=== PATIENT | female | born 1965 | race Caucasian/White ===

== ENCOUNTER → 2016-08-31 | Outpatient (CLI) | payer OTHER ==
[~2016-08-31] MED LIST: GADAVIST IV PRN
--- NOTE | 2016-08-31 14:24 | DIAGNOSTIC IMAGING REPORT ---
MRI OF THE CERVICAL SPINE WITH AND WITHOUT CONTRAST CLINICAL HISTORY: Right-sided weakness. Gait abnormality. Visual changes. COMPARISON: None. TECHNIQUE: Utilizing a 1.5 Corinne magnet and dedicated coil, multiplanar, multiecho imaging of the cervical spine was performed before and after intravenous administration of 6.3 of Gadavist. FINDINGS: There is reversal of the normal cervical lordosis. There is 3 mm of anterolisthesis of C2 on C3, 3 mm of anterolisthesis of C3 on C4, 5 mm of retrolisthesis of C4 on C5 and 4 mm anterolisthesis of C7 on T1. This exam is mildly compromised by motion artifact. There is suspected increased signal within the cervical cord at the C4-C5 level. No intracanalicular mass, fluid collection or pathologic enhancement is present. Paravertebral soft tissues are unremarkable. Severe multilevel degenerative changes are present. C2-C3: The central canal is patent. There is moderate left neural foraminal stenosis. C3-C4: There is mild narrowing of the central canal. There is severe narrowing of both neural foramen due to facet arthrosis and uncovertebral hypertrophy. C4-C5: There is severe narrowing of the central canal in part due to retrolisthesis of C4 on C5. There is mild disc bulge. There is osteophyte formation. There is severe narrowing of both neural foramen. C5-C6: A disc bulge is noted. There is severe narrowing of the central canal as well as both neural foramen. C6-C7: Disc bulge is present. There is moderate to severe narrowing of the central canal and both neural foramen. C7-T1: There is mild narrowing of the central canal. There is moderate narrowing of both neural foramen. IMPRESSION: 1. Severe multilevel degenerative disc disease and facet arthrosis of the cervical spine which is superimposed upon reversal of the normal cervical lordosis with multilevel anterolisthesis and retrolisthesis, as described above. The findings result in severe multilevel central canal stenosis, most pronounced at the C4-C5, C5-C6 and C6-C7 levels. 2. Severe multilevel neural foraminal stenosis. 3. Increased cervical cord signal at the C4-C5 level which could reflect cord edema or myelomalacia. Electronically signed by: Kiet Chawla M.D. 08/31/2016 2:21 PM Dictated Date/Time: 08/31/2016 2:14 PM
--- NOTE | 2016-08-31 16:38 | DIAGNOSTIC IMAGING REPORT ---
MRI OF THE BRAIN WITHOUT AND WITH IV CONTRAST CLINICAL HISTORY: Right-sided weakness. Visual changes. Gait abnormality. COMPARISON STUDY: No previous studies for comparison. TECHNIQUE: Utilizing a 1.5 Corinne magnet and dedicated coil, multiplanar, multiecho imaging of the brain was performed pre and postcontrast administration. IV administration of 6.3 mL of Gadavist contrast was uneventful. FINDINGS: This exam is mildly compromised by motion artifact although is diagnostic. No acute intracranial hemorrhage, midline shift or mass effect is present. Brain volume is normal for age. Ventricular system is normal. Basilar cisterns are patent. There are no extra-axial collections. Flow-voids for the major intracranial vessels are present. There is no intracranial mass or pathologic enhancement. Numerous white matter T2 hyperintense foci are noted. Calvarial signal is maintained. Orbits are unremarkable. IMPRESSION: 1. No acute intracranial findings. 2. No intracranial masses or pathologic enhancement. 3. Numerous white matter T2 hyperintense foci. While nonspecific, the appearance is not suggestive of multiple sclerosis. Differential considerations include small vessel disease and sequela of migraine headaches. Electronically signed by: Kiet Chawla M.D. 08/31/2016 4:36 PM Dictated Date/Time: 08/31/2016 1:05 PM
== END | disposition home or self-care (01) ==
LOC: C.MRIBC 10:43
PROVIDERS: ATTEND Nurse Practitioner Adult Health
DX: M62.81 Muscle weakness (generalized) (principal); R20.2 Paresthesia of skin; H53.9 Unspecified visual disturbance; M50.321 Other cervical disc degeneration at C4-C5 level; M50.322 Other cervical disc degeneration at C5-C6 level; M50.323 Other cervical disc degeneration at C6-C7 level; M47.892 Other spondylosis, cervical region; M48.02 Spinal stenosis, cervical region